=== PATIENT | male | born 1960 | race Caucasian/White ===

== ENCOUNTER 2022-07-18 15:26 | Inpatient (IN) ==
[2022-07-18 16:01] LABS: ABS Basophils 0.1 10^3/ul (0-0.2); ABS Eosinophils 0.2 10^3/ul (0-0.6); ABS Lymphocytes 3.3 10^3/ul (1.0-4.8); ABS Monocytes 0.8 10^3/ul (0-0.8); ABS Neutrophils 3.9 10^3/ul (1.5-7.7); ABS Nucleated RBC 0.1 10^3/ul; Hematocrit 40 % (42-52); Hemoglobin 14.2 g/dL (14.0-18.0); Lymphocyte % 40.1 %; Mean Corpuscular HGB Conc 35 g/dL (31-36); Mean Corpuscular Hemoglobin 32 pg (27-31); Mean Corpuscular Volume 89 fL (80-94); Mean Platelet Volume 7.7 fL (7.4-10.4); Nucleated Red Blood Cells % 0.6; Platelet Count 332 10^3/uL (150-450); Red Blood Count 4.48 10^6 /uL (4.18-5.48); Red Cell Distribution Width 13 % (10-15); White Blood Count 8.3 10^3/uL (3.5-10.8)
[2022-07-18 16:10] LABS: INR 1.02 (0.89-1.11)
[2022-07-18 16:42] LABS: Albumin 4.5 g/dL (3.2-5.2); Potassium 3.9 mmol/L (3.5-5.0); eGFR CKD-EPI 86.2 (>60)
[2022-07-18 16:43] LABS: Albumin/Globulin Ratio 1.3 (1-3); Globulin 3.5 g/dL (2-4); Total Bilirubin 0.6 mg/dL (0.2-1.0)
[2022-07-18 16:56] LABS: HDL Cholesterol 39.5 mg/dL
[2022-07-18 17:20] LABS: High Sensitivity Troponin 1 Hr 76 pg/mL (<20)
[2022-07-18 17:44] LABS: HDL Cholesterol 37.4 mg/dL
[2022-07-18] MEDS ORDERED: Heparin DRIP 25,000 UNITS BAG 25,000 UNITS/500 ML BAG IV SCH (18:30)
[2022-07-18 18:31] LABS: Hepatitis C Antibody Negative (Negative)
[2022-07-18 18:56] LABS: C Reactive Protein 2.36 mg/L (<8.01)
[2022-07-18] MEDS ORDERED: Heparin 5000 UNITS/ML 1 mL VIAL IV SCH (19:00)
[2022-07-18 19:36] LABS: eGFR CKD-EPI 96.5 (>60)
[2022-07-18 22:33] LABS: Magnesium 2.3 mg/dL (1.9-2.7)
[2022-07-19 08:53] LABS: ABS Basophils 0.1 10^3/ul (0-0.2); ABS Eosinophils 0.1 10^3/ul (0-0.6); ABS Lymphocytes 2.7 10^3/ul (1.0-4.8); ABS Monocytes 0.7 10^3/ul (0-0.8); ABS Neutrophils 3.7 10^3/ul (1.5-7.7); Eosinophil % 1.4 %; Hematocrit 40 % (42-52); Hemoglobin 14.1 g/dL (14.0-18.0); Lymphocyte % 36.5 %; Mean Corpuscular HGB Conc 35 g/dL (31-36); Mean Corpuscular Hemoglobin 31 pg (27-31); Mean Corpuscular Volume 89 fL (80-94); Mean Platelet Volume 7.6 fL (7.4-10.4); Nucleated Red Blood Cells % 0.4; Platelet Count 302 10^3/uL (150-450); Red Blood Count 4.49 10^6 /uL (4.18-5.48); Red Cell Distribution Width 13 % (10-15); White Blood Count 7.3 10^3/uL (3.5-10.8)
[2022-07-19 09:01] LABS: Activated Partial Thrombo Time 90.5 seconds (26.0-38.0)
[2022-07-19 09:31] LABS: Potassium 4.1 mmol/L (3.5-5.0); eGFR CKD-EPI 92.8 (>60)
[2022-07-19] MEDS ORDERED: NS 0.9% 1000 ml BAG 1,000 ML IV SCH (09:45)
[2022-07-19] MEDS ORDERED: Pravastatin 20 mg TAB (NF) PO SCH (10:00)
[2022-07-19 10:20] LABS: High Sensitivity Troponin 1 Hr 381 pg/mL (<20)
[2022-07-19] MEDS ORDERED: Midazolam 5 mg/5 ml VIAL 1 mg/ml 5 ml VIAL (5 mg) ONE (10:30)
[2022-07-19] MEDS ORDERED: fentaNYL 100 mcg/2 ml 50 MCG/ML VIAL ONE (10:31)
[2022-07-19] MEDS ORDERED: VERAPAMIL 2.5 MG/ML 2 ML VIAL ** 5 mg/2 ml ONE (10:31)
[2022-07-19] MEDS ORDERED: nitroGLYCERIN DRIP 25,000 MCG/250 ML BTL ONE (10:31)
[2022-07-19] MEDS ORDERED: Lidocaine 1% MPF 5 ML VIAL ONE (10:31)
[2022-07-19] MEDS ORDERED: Iohexol 350 (CONTRAST) 100 ML PAK IV ONE ×4 (10:31→12:35)
[2022-07-19] MEDS ORDERED: Heparin 1,000 UNIT/ML 10 ml (10,000 UNITS) CATHLAB/DIALYSIS ONE ×2 (10:31→12:23)
[2022-07-19] MEDS ORDERED: Heparin 2 UNITS/ML 1000 mls 2,000 ML IV ONE (10:31)
[2022-07-19] MEDS ORDERED: niCARdipine 0.1MG/ML IVPREMIX 20 MG/200 ML BAG IV ONE (10:32)
[2022-07-19] MEDS ORDERED: Heparin 2 UNITS/ML 1000 mls 1,000 ML IV ONE (10:58)
[2022-07-19] MEDS ORDERED: Prasugrel 10 mg TAB (NF) ONE (11:18)
[2022-07-19] MEDS ORDERED: Ondansetron 4 mg VIAL 2 MG/ML 2 ml VIAL IV PRN (12:51)
[2022-07-19] MEDS ORDERED: Pantoprazole VIAL 40 MG VIAL IV ONE (16:55)
[2022-07-19] MEDS ORDERED: Al Hydrox/Mg Hydrox/Simet LIQ 30 ML UDC PO ONE (17:15)
[2022-07-20 06:24] LABS: ABS Basophils 0.1 10^3/ul (0-0.2); ABS Eosinophils 0.1 10^3/ul (0-0.6); ABS Lymphocytes 2.9 10^3/ul (1.0-4.8); ABS Monocytes 0.8 10^3/ul (0-0.8); ABS Neutrophils 4.8 10^3/ul (1.5-7.7); Eosinophil % 1.7 %; Hematocrit 38 % (42-52); Hemoglobin 13.1 g/dL (14.0-18.0); Lymphocyte % 33.3 %; Mean Corpuscular HGB Conc 35 g/dL (31-36); Mean Corpuscular Hemoglobin 31 pg (27-31); Mean Corpuscular Volume 90 fL (80-94); Mean Platelet Volume 7.7 fL (7.4-10.4); Nucleated Red Blood Cells % 0.1; Platelet Count 289 10^3/uL (150-450); Red Blood Count 4.21 10^6 /uL (4.18-5.48); Red Cell Distribution Width 13 % (10-15); White Blood Count 8.7 10^3/uL (3.5-10.8)
[2022-07-20 07:17] LABS: Calcium 9.4 mg/dL (8.6-10.3); Magnesium 2.2 mg/dL (1.9-2.7); eGFR CKD-EPI 95.2 (>60)
[2022-07-20] MEDS ORDERED: PRASUGREL 10 MG PO SCH (09:00)
[2022-07-20 14:27] VITALS: BP 126/78
== END 2022-07-20 12:00 | disposition home or self-care (01) | DRG 247 ==
LOC: ED 15:26 → EDHOLD 15:26 → OBSVTOIN 22:03 → MEDTELE 07-19 → ICU 07-19 12:51
PROVIDERS: ADMIT Internal Medicine; ATTEND Internal Medicine